=== PATIENT | female | born 2000 | race Hispanic/Latino ===

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

== ENCOUNTER 2025-06-24 22:40 | Emergency (ER) | payer OTHER ==
[~2025-06-24] VITALS: Ht 167.6 cm; Wt 120.2 kg
[2025-06-24] MEDS: 0.9%NACL 1000ML 1,000 ML IV ONE (23:18)
[2025-06-24 23:30] LABS: APPEARANCE,URINE CLEAR (CLEAR); GLUCOSE, URINE (UA) NEGATIVE (NEGATIVE); LEUKOCYTE ESTERASE ,URINE NEGATIVE Leu/uL (NEGATIVE); NITRATE,URINE NEGATIVE (NEGATIVE); OCCULT BLOOD,URINE SMALL (NEGATIVE)
[2025-06-24 23:31] LABS: ADD UA MICROSCOPIC YES
[2025-06-24 23:32] LABS: SQUAMOUS EPITHELIAL CELL,UR RARE /HPF (0-2)
[2025-06-24 23:33] LABS: IMMATURE GRANULOCYTE ABSOLUTE 0.02 K/uL (0-1); NUCLEATED RED BLOOD CELLS 0.0 % (0.0-0.19); PLATELET COUNT (AUTO) 300 K/uL (130-400); RED BLOOD CELL COUNT(AUTO) 4.00 MIL/uL (4.00-5.50); RED CELL DISTRIBUTION WIDTH 13.2 % (11.0-15.5); WHITE BLOOD COUNT (AUTO) 8.6 K/uL (4.8-10.8)
[2025-06-24 23:41] LABS: CREATININE 0.7 mg/dL (0.5-1.0); GLOMERULAR FILTR. RATE CALC 123 mL/min (>90); GLUCOSE,RANDOM 95 mg/dL (70-105); SODIUM SERUM 143 mmol/L (136-145); UREA NITROGEN, BLOOD 13 mg/dL (7-18)
[2025-06-24 23:49] LABS: CREATINE KINASE, TOTAL 184 U/L (21-232)
--- NOTE | 2025-06-25 00:37 | HMCIMG ---
EXAM: CR Chest, 1 view CLINICAL HISTORY: Chest pain. COMPARISON: None provided. FINDINGS: The lungs show no infiltrates or other acute findings. No pleural effusion or pneumothorax. The cardiomediastinal silhouette is within normal limits. No acute osseous abnormality. IMPRESSION: No acute cardiopulmonary process is evident. /[place]
--- NOTE | 2025-06-25 00:52 | ERN ---
General Chief Complaint: Heat Exposure Stated Complaint: DIZZINESS, PALPITATIONS, HYPOTENSION Time Seen by MD: 22:47 Time Seen by Midlevel: 22:47 Source: patient History of Present Illness Initial Comments 25-year-old female with a past medical history of SVT presenting to the emergency department after she had an episode of dizziness, palpitations, and ge neralized body weakness. 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 On arrival she does state the episode has completely resolved. She has an ablation scheduled with [facility] next month. Allergies: Coded Allergies: No Known Drug Allergies (Unverified Allergy, Unknown, 06/24/25) Past Medical History Past Medical History: A-Fib Past Surgical History: Unknown ROS Dictation CONSTITUTIONAL: Negative except for HPI HEAD/FACE: Negative except for HPI EENT: Negative except for HPI RESPIRATORY: Negative except for HPI GASTROINTESTINAL/ABDOMINAL: Negative except for HPI GENITOURINARY: Negative except for HPI MUSCULOSKELETAL: Negative except for HPI INTEGUMENTARY: Negative except for HPI NEUROLOGICAL/PSYCH: Negative except for HPI HEMATOLOGIC/LYMPHATIC: Negative except for HPI All Systems Negative, Except as noted above. 13 point review of systems assessed and all negative except for above. Physical Exam Physical Exam Dictation Vital Signs reviewed General Appearance: Alert, oriented x 3, no acute distress, well developed, nourished. Head and Face: non-traumatic. Eyes: PERRL, pink conjunctivas, eyelid no trauma, anterior chamber with arcus senilis. Ears: Pinnas intact and no signs of trauma or erythema ear canals clear and no discharge TM no erythema Nose: No discharge, no bleeding. Oropharynx: Mouth normal, tongue pink, pharynx clear,no erythema, tonsils no exudates, no abscesses noted, mucous membrane moist Neck: Supple, non-tender, no thyromegaly, no masses, no JVD, no bruits Breast:Deferred Chest:No tenderness, no crepitus, no paradoxical movement, no retractions Lungs:Clear, well-ventilated, symmetric, no rales, no wheezing, no rhonchi, no stridor, good breath sounds bilaterally Heart: Regular rate, regular rhythm, no murmur, no gallops Vascular: no peripheral edema, Abdomen: Soft, positive bowel sounds, nondistended, no guarding, nontender, no rebound, no masses no hepatomegaly, no splenomegaly, no Daniel's sign, no hernias. Rectal: Deferred Genital: Deferred Neurological: Normal speech, motor function intact, sensory function intact Musculoskeletal: Neck nontender, full range of motion, back nontender, full range of motion, Extremities: nontender, full range of motion Skin: Color pink, dry, no turgor, no rash, no lacerations, no abrasions, no contusions. Lymphatic: Deferred Results Laboratory and Microbiology Lab and Micro Result Laboratory Tests Test 06/24/25 23:16 White Blood Count 8.6 K/uL (4.8-10.8) Red Blood Count 4.00 MIL/uL (4.00-5.50) Hemoglobin 11.5 g/dL (12.0-16.0) L Hematocrit 34.5 % (36-48) L Mean Corpuscular Volume 86.3 fL (79-99) Mean Corpuscular Hemoglobin 28.8 pg (27.0-33.0) Mean Corpuscular Hemoglobin Concent 33.3 g/dL (32.0-36.0) Red Cell Distribution Width 13.2 % (11.0-15.5) Platelet Count 300 K/uL (130-400) Mean Platelet Volume 10.8 fL (7.5-10.5) H Immature Granulocyte % (Auto) 0.2 % (0-1) Neutrophils (%) (Auto) 66.9 % (40.0-77.0) Lymphocytes (%) (Auto) 24.0 % (21.0-51.0) Monocytes (%) (Auto) 7.8 % (3.0-13.0) Eosinophils (%) (Auto) 0.6 % (0.0-8.0) Basophils (%) (Auto) 0.5 % (0.0-5.0) Neutrophils # (Auto) 5.7 K/uL (1.8-7.7) Lymphocytes # (Auto) 2.1 K/uL (1.0-4.8) Monocytes # (Auto) 0.7 K/uL (0.1-1.0) Eosinophils # (Auto) 0.05 K/uL (0.00-0.70) Basophils # (Auto) 0.04 K/uL (0.00-0.20) Absolute Immature Granulocyte (auto 0.02 K/uL (0-1) Nucleated Red Blood Cells 0.0 % (0.0-0.19) Urine Color LIGHT-YELLOW (YELLOW) Urine Appearance CLEAR (CLEAR) Urine pH 6.5 (5.0-8.0) Urine Specific [place] 1.020 (1.001-1.031) Urine Protein NEGATIVE mg/dL (NEGATIVE) Urine Glucose (UA) NEGATIVE mg/dL (NEGATIVE) Urine Ketones NEGATIVE mg/dL (NEGATIVE) Urine Occult Blood SMALL (NEGATIVE) H Urine Nitrate NEGATIVE (NEGATIVE) Urine Bilirubin NEGATIVE mg/dL (NEGATIVE) Urine Urobilinogen 0.2 mg/dL (0.2-1.0) Urine Leukocyte Esterase NEGATIVE Jenae/uL Urine RBC 2-5 /HPF (0-1) H Urine WBC 2-5 /HPF (0-1) H Urine Squamous Epithelial Cells RARE /HPF (0-2) Urine Bacteria None /HPF (None Seen) Sodium Level 143 mmol/L (136-145) Potassium Level 3.3 mmol/L (3.5-5.1) L Chloride Level 108 mmol/L (101-111) Carbon Dioxide Level 24 mmol/L (21-32) Blood Urea Nitrogen 13 mg/dL (7-18) Creatinine 0.7 mg/dL (0.5-1.0) Glomerular Filtration Rate Calc 123 mL/min (>90) Random Glucose 95 mg/dL (70-105) Total Calcium 8.6 mg/dL (8.5-10.1) Magnesium Level 1.90 mg/dL (1.80-2.40) Total Creatine Kinase 184 U/L (21-232) Troponin I High Sensitivity < 4.0 ng/L (4-50) L Serum Test, Qualitative NEGATIVE (NEGATIVE) Labs Reviewed?: Yes MDM MDM: 25-year-old female with a past medical history of SVT presenting to the emergency department after she had an episode of dizziness, palpitations, and generalized body weakness. 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 On arrival she does state the episode has completely resolved. She has an ablation scheduled with [facility] next month. On physical examination the patient is in no acute distress. Initial vital signs are stable. EKG shows no acute ischemic changes. No evidence of SVT. Heart rate in the 80s on arrival. Blood pressure stable. CBC shows no leukocytosis. There is mild anemia with a hemoglobin of 11.5. No thrombocytopenia. Chemistries reveal mild hypokalemia with a potassium of 3.3. This was replaced with25 mg of effervescent p.o.. The remainder of her chemistries are unremarkable. Her troponin level was negative. Her test is negative. Her chest x-ray shows no acute cardiopulmonary process. Patient was observed in the ER for over2 hours and has remained stable with no episodes of SVT in the ER. Patient was hydrated 1 L of IV fluids and was given oral potassium. Lab and imaging were discussed with the patient. She does report feeling significantly improved and is asking to be discharged. 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 Differential diagnosis: Dehydration, electrolyte abnormality, cardiac arrhythmia, acute coronary syndrome There are no social concerns with this patient. Prescription drug management Prescriptions will include: None Medical management and examination interpretation discussions were had by me with other qualified healthcare professionals as indicated for the patient's care. ED Course Orders Procedure Category Date Status Time 0.9%Nacl 1000ml (Ns PHA 06/24/25 Complete 1000ml) 23:30 12 Lead Ekg Tracing- EKG 06/24/25 Logged Technical 23:10 Cbc With Differential LAB 06/24/25 Complete 23:10 Basic Metabolic Panel LAB 06/24/25 Complete 23:10 Magnesium LAB 06/24/25 Complete 23:10 Testing, LAB 06/24/25 Complete Serum Hcg 23:10 Urinalysis Profile LAB 06/24/25 Complete 23:10 Chest 1vw RAD 06/24/25 Resulted 23:10 Cardiac Panel LAB 06/24/25 Complete 23:16 Potassium Bicarb/Cit PHA 06/25/25 Complete Ac 25meq (K-Lyte Ta 00:00 Current Medications Medications (Trade) Dose Ordered Sig/Kay Route PRN Reason Start Time Stop Time Status Last Admin Dose Admin Potassium Bicarbonate (K-Lyte Tablet Eff 25 Meq Tablet.eff) 25 meq ONCE ONCE PO 06/25/25 00:00 06/25/25 00:01 DC 06/24/25 23:58 Sodium Chloride 1,000 ml @ 0 mls/hr ONCE ONCE IV 06/24/25 23:30 06/24/25 23:31 DC 06/24/25 23:18 Vital Signs Date Time Temp Pulse Resp B/P (MAP) Pulse Ox O2 Delivery O2 Flow Rate FiO2 06/24/25 23:05 98.8 83 18 109/60 99 Room Air* 0 21 06/24/25 22:50 99.0 94 18 135/84 99 Room Air 0 DX & DISP Disposition: Discharge Departure Impression: Primary Impression: Hypokalemia Condition: Stable Referrals: SELF,REFERRAL (PCP) Time of Disposition: 00:52 I have reviewed the case, and I agree with, Diagnosis and Plan I performed the substantive portion of the visit. I have reviewed and personally made and approve the management plan that is documented in the note by myself or the SINTIA. I acknowledge for responsibility for the patient's management plan. CORNELL COTTON PAC Jun 25, 2025 00:52
[2025-06-25 01:19] VITALS: BP 115/55; PULSE 75; RESP 18; TEMP 98.8; O2SAT 98
--- NOTE | 2025-06-25 02:59 | EKG ---
[facility] Test Date: 2025-06-24 Test Time: 23:29:48 Pat Name: PEGGY ANTOINE Department: ED Room: Gender: F Certified Medical Dosimetrist: [id number] : 2000 Requested By: CORNELL COTTON Order Number: [id number] Reading MD: Alan Gama Measurements Intervals [place] Rate: 77 P: 4 IL: 228 QRS: -27 QRSD: 100 T: 0 QT: 390 QTc: 442 Interpretive Statements Sinus rhythm Prolonged IL interval Borderline ST elevation, lateral leads No previous ECG available for comparison Electronically Signed On 06-26-2025 16:08:06 CDT by Alan Gama Please click the below link to view image of tracing.
== END 2025-06-25 01:20 | disposition home or self-care (01) ==
LOC: EDH 22:40
DX: R42 Dizziness and giddiness (principal); E87.6 Hypokalemia; R00.2 Palpitations; I48.91 Unspecified atrial fibrillation; Z86.79 Personal history of other diseases of the circulatory system
CPT/HCPCS: 99285; 71045; 82550; 83735; 84484; 80048; 84703; 85025; 81001; 36415; 93005; J7030; 96360

== ENCOUNTER 2025-08-10 23:00 | Emergency (ER) | payer OTHER ==
[~2025-08-10] VITALS: Ht 170.2 cm; Wt 121.6 kg
--- NOTE | 2025-08-10 23:22 | ERN ---
ED Note History of Present Illness Stated Complaint: C/O DIZZINESS Chief Complaint: Dizzy/Light Headed Time Seen by MD: 23:11 Dictation: 25-year-old female with a past medical history of SVT presenting to the emergency department after she had an episode of dizziness, palpitations, and generalized body weakness. 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 No history of any fever chills or rigors. No nausea vomitings diarrhea. No dysuria frequency or hematuria. No chest pain pressure PND orthopnea She is scheduled for ablation therapy on August 18 2025. She is on flec ainide and Cardizem for her SVT. She indicated to me that she did have a sleep study done and she has not had a follow up for the results Temperature 97.6 pulse 71 respirations 20 blood pressure 109/64 pulse oximetry 99% on room air weight 268 lb BMI 42 Allergies: Coded Allergies: No Known Drug Allergies (Unverified Allergy, Unknown, 06/24/25) Past Medical History Past Medical History: Other Additional Past Medical Hx: HX OF SVT Surgical History: Tonsillectomy, Other Family History: Negative Social History: Drugs (Marijuana use), Negative LMP: Jul 27, 2025 RN Note Reviewed/Agreed w/PFSH: Yes Review of System Dictation Constitutional: Negative for fever,chills, and weight loss Eyes: Negative for injury, pain,redness, and discharge ENT: Negative for injury,pain or swelling Cardiovascular: Negative for chest pain, palpitations, and edema positive for dizziness and lightheadedness Respiratory: Negative for shortness of breath, cough, and wheezing, Abdomen/GI: Negative for abdominal pain, nausea, vomiting, diarrhea, and cons tipation Back: Negative for injury and pain : Negative for injury, bleeding and discharge MS/Extremity: Negative for injury and deformity Skin: Negative for rash, and discoloration Neuro: Negative for headache, weakness, numbness, tingling, and seizure Psych: Negative for suicide ideation, homicidal ideation, and hallucinations Initial Vital Sign VS Vital Signs Date Time Temp Pulse Resp B/P (MAP) Pulse Ox O2 Delivery O2 Flow Rate FiO2 08/10/25 23:01 97.5 71 20 109/64 99 Room Air 08/10/25 23:58 0 21 Physical Exam Dictation General: awake, alert, NAD morbidly obese Head/Face: Normocephalic, atraumatic Eyes: PERRL, EOMI, vision at baseline ENT: oral cavity clear, TMs clear, no signs of infection Neck: Trachea midline, supple, no nuchal rigidity Cardiovascular: RRR, normal S1/S2, No MRGs, no JVD Respiratory: CTAB, no respiratory distress, No rales or wheezes Abdomen: Soft, non-tender, non-distended, normal bowel sounds, no guarding or rebound. Skin: Warm, dry, normal turgor, no rash MS/Extremity: Pulses equal, no cyanosis, neurovascular intact, FROM Neuro: COAx4, GCS 15, strength 5/5, CN 2-12 intact, normal cerebellar exam, normal gait, Psych: Normal behavior, mood, and affect normal Extremities-trace edema without any palpable cords, Homans sign is negative Results (Laboratory/Radiology) Laboratory/Radiology Laboratory Tests Test 08/10/25 23:40 08/10/25 23:43 08/10/25 23:55 Influenza Type A Antigen Negative For Type A Influenza Type B Antigen Negative For Type B SARS-CoV-2 Antigen (Rapid) PRESUMPTIVE NEGATIVE Group A Streptococcus Rapid negative (NEGATIVE) Urine Color LIGHT-YELLOW (YELLOW) Urine Appearance CLEAR (CLEAR) Urine pH 6.0 (5.0-8.0) Urine Specific [place] 1.029 (1.001-1.031) Urine Protein NEGATIVE mg/dL (NEGATIVE) Urine Glucose (UA) NEGATIVE mg/dL (NEGATIVE) Urine Ketones NEGATIVE mg/dL (NEGATIVE) Urine Occult Blood NEGATIVE (NEGATIVE) Urine Nitrate NEGATIVE (NEGATIVE) Urine Bilirubin NEGATIVE mg/dL (NEGATIVE) Urine Urobilinogen 0.2 mg/dL (0.2-1.0) Urine Leukocyte Esterase NEGATIVE Jenae/uL Urine Opiates Screen NEGATIVE (NEGATIVE) Urine Barbiturates Screen NEGATIVE (NEGATIVE) Urine Phencyclidine Screen NEGATIVE (NEGATIVE) Urine Amphetamines Screen NEGATIVE (NEGATIVE) Urine Benzodiazepines Screen NEGATIVE (NEGATIVE) Urine Cocaine Screen NEGATIVE (NEGATIVE) Urine Marijuana (THC) Screen POSITIVE (NEGATIVE) H White Blood Count 8.2 K/uL (4.8-10.8) Red Blood Count 4.28 MIL/uL (4.00-5.50) Hemoglobin 12.7 g/dL (12.0-16.0) Hematocrit 37.7 % (36-48) Mean Corpuscular Volume 88.1 fL (79-99) Mean Corpuscular Hemoglobin 29.7 pg (27.0-33.0) Mean Corpuscular Hemoglobin Concent 33.7 g/dL (32.0-36.0) Red Cell Distribution Width 13.6 % (11.0-15.5) Platelet Count 323 K/uL (130-400) Mean Platelet Volume 10.8 fL (7.5-10.5) H Immature Granulocyte % (Auto) 0.2 % (0-1) Neutrophils (%) (Auto) 63.5 % (40.0-77.0) Lymphocytes (%) (Auto) 25.7 % (21.0-51.0) Monocytes (%) (Auto) 7.8 % (3.0-13.0) Eosinophils (%) (Auto) 2.3 % (0.0-8.0) Basophils (%) (Auto) 0.5 % (0.0-5.0) Neutrophils # (Auto) 5.2 K/uL (1.8-7.7) Lymphocytes # (Auto) 2.1 K/uL (1.0-4.8) Monocytes # (Auto) 0.6 K/uL (0.1-1.0) Eosinophils # (Auto) 0.19 K/uL (0.00-0.70) Basophils # (Auto) 0.04 K/uL (0.00-0.20) Absolute Immature Granulocyte (auto 0.02 K/uL (0-1) Nucleated Red Blood Cells 0.0 % (0.0-0.19) Sodium Level 134 mmol/L (136-145) L Potassium Level 3.8 mmol/L (3.5-5.1) Chloride Level 101 mmol/L (101-111) Carbon Dioxide Level 25 mmol/L (21-32) Blood Urea Nitrogen 16 mg/dL (7-18) Creatinine 0.8 mg/dL (0.5-1.0) Glomerular Filtration Rate Calc 105 mL/min (>90) Random Glucose 94 mg/dL (70-105) Total Calcium 8.8 mg/dL (8.5-10.1) Magnesium Level 2.00 mg/dL (1.80-2.40) Total Creatine Kinase 65 U/L (21-232) # Troponin I High Sensitivity < 4.0 ng/L (4-50) L Human Chorionic Gonadotropin, Quant 0 mIU/mL (0-5) Labs Reviewed?: Yes EKG Comment: Twelve lead EKG done on 08/10/2025 at 11:15 p.m. showed a heart rate of 59, RI interval 230, QRS 101, QT/QTC 426/423. Impression normal sinus rhythm with a prolonged RI interval overall low voltage left axis deviation nonspecific intraventricular conduction delay EKG rhythm strip shows a normal sinus rhythm with prolonged RI and overall low voltage Interpreted by ER MD Dr. Mcneil ED Course ED Course Orders Procedure Category Date Status Time 12 Lead Ekg Tracing- EKG 08/10/25 Logged Technical 23:17 Cardiac Panel LAB 08/10/25 Complete 23:18 Cbc With Differential LAB 08/10/25 Complete 23:18 Basic Metabolic Panel LAB 08/10/25 Complete 23:18 Hcg,Quantitative LAB 08/10/25 Complete 23:18 Magnesium LAB 08/10/25 Complete 23:18 Urinalysis Profile LAB 08/10/25 Complete 23:18 Influenza Type A & B, LAB 08/10/25 Complete Rapid 23:18 Covid19 (Sars Antigen LAB 08/10/25 Complete Rapid) 23:18 Drug Screen Urine LAB 08/10/25 Complete 23:18 0.9%Nacl 1000ml (Ns PHA 08/10/25 Complete 1000ml) 23:30 Rapid (Group A Strep) LAB 08/10/25 Complete 23:37 Current Medications Medications (Trade) Dose Ordered Sig/Kay Route PRN Reason Start Time Stop Time Status Last Admin Dose Admin Sodium Chloride 1,000 ml @ 0 mls/hr ONCE ONCE IV 08/10/25 23:30 08/10/25 23:31 DC 08/10/25 23:46 Vital Signs Date Time Temp Pulse Resp B/P (MAP) Pulse Ox O2 Delivery O2 Flow Rate FiO2 08/11/25 00:33 61 18 98 Room Air* 0 08/10/25 23:58 65 18 98 Room Air* 0 21 08/10/25 23:01 97.5 71 20 109/64 99 Room Air Medical Decision Making MDM Differential diagnosis: Volume depletion, medication side effects, UTI, electrolyte abnormalities, viral syndrome 25-year-old female with a past medical history of SVT presenting to the emergency department after she had an episode of dizziness, palpitations, and generalized body weakness. 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 No history of any fever chills or rigors. No nausea vomitings diarrhea. No dysuria frequency or hematuria. No chest pain pressure PND orthopnea She is scheduled for ablation therapy on August 18 2025. She is on flecainide and Cardizem for her SVT. She indicated to me that she did have a sleep study done and she has not had a follow up for the results Temperature 97.6 pulse 71 respirations 20 blood pressure 109/64 pulse oximetry 99% on room air weight 268 lb BMI 42 12:30 a.m. labs reviewed CBC is normal BNP 7 is significant for a sodium of 134 chloride 101 bicarb 21. Nasopharyngeal swabs for influenza COVID strep were negative. Gentle bolus of fluids was given. UDS came back positive for marijuana I updated the patient and and her family member on all the results and possibly the feeling of low heart rate may have been subjective secondary to flecainide and the calcium channel kenrick. I counseled her on lifestyle modifications weight loss diet and exercise. She will follow up with the tick eradicator for her ablation therapy Rationale: Tests considered and ordered secondary to shared decision making include: Blood work and EKG Previous outside records reviewed: Old ER visits. Risk of complication and/or morbidity or mortality of patient management: None Medications-Per medication reconciliation Need for hospitalization: Patient does not meet criteria for hospitalization. Need for emergency major/minor surgery: No There are no social concerns with this patient. Prescription drug management Prescriptions will include symptomatic care Patient's prior external medical records from other ER visits were reviewed by me as indicated. Prior testing and results from previous visits were reviewed. Prior tests were taken into account with medical decision making and resource utilization, independent historian/historians were used to obtain complete medical history. I independently interpreted the test that were performed, results were reviewed by me and considered findings on radiology if ordered. Medical management and examination interpretation discussions were had by me with other qualified healthcare professionals as indicated for the patient's care. Problem List Problem List: (1) History of supraventricular tachycardia (2) Dizziness (3) Volume depletion DX & DISP Disposition: Discharge Departure Impression: Primary Impression: Dizziness Additional Impressions: Volume depletion, History of supraventricular tachycardia Condition: Stable Additional Instructions: Patient and the caregiver have been informed of all the diagnostic tests and the imaging conducted during the today's visit to the emergency room and has verbalized understanding of the results I have personally reviewed and interpreted all diagnostic exams performed here in the ER today as well as the vital signs documented by the nursing staff. The patient is now being discharged to home and should follow up with the primary care physician or the specialist as directed by the ER staff. Follow-up with primary care provider in 1 to 2 days. Take medications as directed here in the emergency room. Okay to continue home medications unless otherwise discussed during your visit in the emergency room today. Return to your nearest emergency room if symptoms worsen or if there is no improvement. Call 911 if you need immediate assistance. Take Tylenol or Motrin over -the-counter as needed and if no contraindications are present. Increase oral hydration. A wound culture or urine culture was ordered here in the emergency room department please follow-up with primary care provider and advise them to get repeat ports from our facility. If you had any Viral wrap/splints that were applied here, please do not remove them until you see your primary care or specialty. Referrals: SELF,REFERRAL (PCP) TORIN MCNEIL MD Aug 10, 2025 23:22
[2025-08-10] MEDS: 0.9%NACL 1000ML 1,000 ML IV ONE (23:46)
[2025-08-11] LABS: APPEARANCE,URINE CLEAR (CLEAR); GLUCOSE, URINE (UA) NEGATIVE (NEGATIVE); LEUKOCYTE ESTERASE ,URINE NEGATIVE Leu/uL (NEGATIVE); NITRATE,URINE NEGATIVE (NEGATIVE); OCCULT BLOOD,URINE NEGATIVE (NEGATIVE)
[2025-08-11 00:02] LABS: ADD UA MICROSCOPIC NO
[2025-08-11 00:06] LABS: IMMATURE GRANULOCYTE ABSOLUTE 0.02 K/uL (0-1); NUCLEATED RED BLOOD CELLS 0.0 % (0.0-0.19); PLATELET COUNT (AUTO) 323 K/uL (130-400); RED BLOOD CELL COUNT(AUTO) 4.28 MIL/uL (4.00-5.50); RED CELL DISTRIBUTION WIDTH 13.6 % (11.0-15.5); WHITE BLOOD COUNT (AUTO) 8.2 K/uL (4.8-10.8)
[2025-08-11 00:07] LABS: INFLUENZA TYPE A Negative For Type A (NEGATIVE); INFLUENZA TYPE B Negative For Type B (NEGATIVE)
[2025-08-11 00:08] LABS: COVID19 (SARS ANTIGEN RAPID) PRESUMPTIVE NEGATIVE (NEGATIVE)
[2025-08-11 00:09] LABS: AMPHET/METH SCREEN,URINE NEGATIVE (NEGATIVE); BARBITURATE SCREEN, URINE NEGATIVE (NEGATIVE); CANNABINOID SCREEN,URINE POSITIVE (NEGATIVE); COCAINE SCREEN,URINE NEGATIVE (NEGATIVE)
[2025-08-11 00:14] LABS: CREATININE 0.8 mg/dL (0.5-1.0); GLOMERULAR FILTR. RATE CALC 105 mL/min (>90); GLUCOSE,RANDOM 94 mg/dL (70-105); SODIUM SERUM 134 mmol/L (136-145); UREA NITROGEN, BLOOD 16 mg/dL (7-18)
[2025-08-11 00:25] LABS: CREATINE KINASE, TOTAL 65 U/L (21-232); HCG,QUANTITATIVE 0 mIU/mL (0-5)
[2025-08-11 00:47] VITALS: BP 100/53; PULSE 57; RESP 18; TEMP 98.2; O2SAT 98
--- NOTE | 2025-08-11 05:32 | EKG ---
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
== END 2025-08-11 00:55 | disposition home or self-care (01) ==
LOC: EDH 23:00
DX: R42 Dizziness and giddiness (principal); E86.9 Volume depletion, unspecified; R00.2 Palpitations; F12.90 Cannabis use, unspecified, uncomplicated; E66.01 Morbid (severe) obesity due to excess calories; Z90.89 Acquired absence of other organs; Z68.41 Body mass index [BMI] 40.0-44.9, adult; Z20.822 Contact with and (suspected) exposure to COVID-19
CPT/HCPCS: 99284; 87426; 82550; 83735; 84484; 80048; 80305; 84702; 85025; 87880; 87804 ×2; 36415; 93005; 81003; J7030